=== PATIENT | female | born 1935 | race Caucasian/White ===

== ENCOUNTER → 2018-10-15 | Outpatient (CLI) | payer MEDICARE, BC ==
[2015-12-25 17:18] VITALS: BP 134/61
[~2018-10-15] MED LIST: BUME1TAB PO; BUPIVACAINE MPF 0.25% 10 ML VIAL. ONE; CYCL5TAB PO; DICL100G18 TP; GING250C PO; GINKO; INSU100I13 SQ; INSU100I17 SQ; IOHEXOL 180 MG/ML 10 ML VIAL. ONE; LEVO125T5 PO; LEVO25TA4 PO; MAGN400C PO; MELO15TA23 PO; METO-239 PO; PARS1TAB PO; QUIN10TA15 PO; VITA600C2 PO; [UNRECOGNIZED DRUG - OTHER]; [UNRECOGNIZED DRUG - OTHER]; [UNRECOGNIZED DRUG - OTHER]; [UNRECOGNIZED DRUG - OTHER]; [UNRECOGNIZED DRUG - OTHER]; arnica; methylPREDNISolone ACETATE 80 MG/ML VIAL. ONE; potassium; tumeric
--- NOTE | 2018-10-16 00:03 | PAIN ---
DATE OF SERVICE: 10/15/2018 INITIAL CONSULTATION FOR PAIN CLINIC CHIEF COMPLAINT: Right hip pain. HISTORY OF PRESENT ILLNESS: This is an 83-year-old female who presents with history of pain in the right hip for about 6 months, increasing with walking, standing, ambulating, putting all of her weight on her right leg with significant pain into the groin on the right side as well as into the posterior aspect of the hip and gluteus on the right as well, radiates into the anterior thigh, anterior lower thigh and into the lower leg at times. The patient reports it is worse with standing, walking, changing positions while she was stepping on a curb or a stairs. She is unable to climb the stairs from her basement affecting her activities of daily living significantly as her washing machine is in the basement, she could not get back up the stairs with the load of laundry. The patient reports the disability rating from 0-10, 10 being the worst, is a 10 with family and home responsibilities and social activity, occupation; 7 with self-care and life support activities; 8 with recreational activities. The patient did have plain films of the right hip showing moderate narrowing of the right hip joint with subchondral sclerosis and marginal spurring, moderate degenerative change of the right hip joint. The patient reports no significant pain on the left side. She is using a cane or walker and has a cane with her today. The patient reports it is waking her from sleep at least once or twice at night, does not affect her bowel or bladder control, but does affect her ability to walk significantly. The patient reports no loss of motor function or falls because she is careful with the cane or walker at all times. The patient has had some chiropractic treatments, which seems to help a little with her back pain, but not with her hip, has had some intramuscular injections for arthritis as well, which has helped, but not with the hip pain. PAST MEDICAL HISTORY: Significant for diabetes, hearing loss, cataracts, hypertension, heart stent, cardiac disease, coronary artery disease, arthritis, neuropathy. PREVIOUS SURGERY: Include hysterectomy, lumbar laminectomy in 1980, laser eye surgery, vitrectomy and vein ablation in the leg. CURRENT MEDICATIONS: Include cyclobenzaprine, meloxicam, turmeric, magnesium, potassium, vitamin E, bumetanide, insulin, levothyroxine, parsley and garlic, regi root, and Voltaren. ALLERGIES: THE PATIENT IS ALLERGIC TO CLONIDINE, DEMEROL, METFORMIN AND TETANUS. FAMILY HISTORY: Significant for heart disease as well as diabetes. SOCIAL HISTORY: The patient does not drink alcohol, does not smoke. Does not use any illegal, illicit or recreational drugs. She is retired, lives locally on her own and lives locally in [place], [place]. REVIEW OF SYSTEMS: The patient's review of systems is positive for those items mentioned in history of present illness. All systems reviewed, otherwise negative. It is complete, full and well documented on the patient's chart. PHYSICAL EXAMINATION: VITAL SIGNS: The patient's blood pressure 148/64, pulse 94, respirations 18, temperature 97.8 degrees Fahrenheit, height is 5 feet 2 inches, weight is 217 pounds. GENERAL: The patient is awake, alert, oriented, appropriate, very pleasant demeanor. HEENT: Shows normocephalic, atraumatic. Extraocular movements are intact and symmetrical. Oral cavity: Mucous membranes moist and pink. Dentition is intact. NECK: Shows anterior throat supple without palpable lymphadenopathy noted. Swallow reflex is symmetrical. CHEST: Shows normal on inspection. Breath sounds are clear to auscultation bilaterally. HEART: Shows S1, S2 clear. No murmurs auscultated. ABDOMEN: Soft, nontender, nondistended. No palpable organomegaly is noted. No rebound or guarding demonstrated. BACK: Shows spine grossly in the midline with slight increase in thoracic kyphosis and mild flattening of lumbar lordotic curvature with well-healed surgical scarring noted. Lumbar paraspinous muscle shows symmetrical on inspection. With palpation shows some moderate tenderness throughout the upper, middle, lower distribution of paraspinous muscles, but only diffusely. No tenderness over the sacrum or sacroiliac regions. The patient shows good rotational motion of lumbar spine both laterally as well as extension and flexion without significant difficulty. EXTREMITIES: Lower extremities show deep tendon reflexes 1+ in the patellar and tendo calcaneus tendons are equal. Motor exam is 5/5 with dorsiflexion and extension, quadriceps and hamstring flexion approximately 3-4 on a scale 5 on the right and 5/5 on the left. Peripheral pulses are 1+ posterior tibia. No peripheral edema is noted. The patient's lower extremities are warm and dry to touch, equal in color and appearance. The patient shows positive Rishi's maneuver on the right with external rotation and posterior displacement of the right hip. Left side is negative. Straight leg raise noted to be negative for reproduction of radicular symptoms bilaterally. SKIN: The patient's skin shows warm and dry, good turgor. No edema. No sores or bruising. The patient does have some red erythematous changes on anterior shins bilaterally. The patient is able to stand with difficulty standing on her toes as she loses balance easily, walking with a significant antalgic gait favoring the right lower extremity significantly with a limp and walking with a cane in her right hand, which she depended on fairly significantly. IMPRESSION: This is an 83-year-old female with: 1. Long history of right hip and lower extremity pain, worse over the past 6 months or so. 2. X-rays of the right hip as noted. 3. Diabetes. 4. Arthritis. 5. Coronary artery disease. 6. Hypertension. PLAN: Options were discussed with the patient including conservative medical management, physical therapy, interventional technique and she would like to pursue interventional techniques. We discussed a right intraarticular hip joint injection using description as well as anatomical models to describe the procedure. Risks were then discussed including, but not limited to bleeding, infection, possibility of intravascular injection sequelae, spread of local anesthetic and numbness, side effects of steroid medication, exposure to fluoroscopy and poor results regarding pain control. The patient understands and wished to proceed. The patient will return to the clinic in approximately 2 weeks for followup, was counseled on return appointment, activity level and side effects to be aware of. DIAGNOSIS: Right hip joint pain with primary osteoarthritis, right hip joint. PROCEDURE: Right intraarticular hip joint injection using C-arm fluoroscopic guidance under sterile prep and drape using local anesthetic. MEDICATION INJECTED: A total of 80 mg Depo-Medrol plus 3 mL of 0.25% bupivacaine and 2 mL of Isovue for contrast. CONDITION AT DISCHARGE: Stable. The patient tolerated the procedure well and had no complications. YANETH MARIA MD DR: FABIAN/leeanne JOB#: [id number] / [id number]
== END | disposition home or self-care (01) ==
LOC: PNCL 10:29
PROVIDERS: ATTEND Anesthesiology
DX: M16.11 Unilateral primary osteoarthritis, right hip (principal); I10 Essential (primary) hypertension; I25.10 Atherosclerotic heart disease of native coronary artery without angina pectoris; Z95.5 Presence of coronary angioplasty implant and graft; E11.40 Type 2 diabetes mellitus with diabetic neuropathy, unspecified; H91.90 Unspecified hearing loss, unspecified ear; Z90.710 Acquired absence of both cervix and uterus; Z98.890 Other specified postprocedural states; Z79.899 Other long term (current) drug therapy; Z79.4 Long term (current) use of insulin; Z88.6 Allergy status to analgesic agent; Z88.7 Allergy status to serum and vaccine; Z88.8 Allergy status to other drugs, medicaments and biological substances; Z88.5 Allergy status to narcotic agent; Z83.3 Family history of diabetes mellitus; Z82.49 Family history of ischemic heart disease and other diseases of the circulatory system
CPT/HCPCS: 20610; 77002; J1040; J3490; Q9965

== ENCOUNTER → 2018-12-17 | Outpatient (CLI) | payer MEDICARE, BC ==
[2015-12-25 17:18] VITALS: BP 134/61
[~2018-12-17] MED LIST changes: -BUME1TAB PO; +BUME1TAB3 PO; -BUPIVACAINE MPF 0.25% 10 ML VIAL. ONE; +HYDR-2765 PO; +HYDR-3164 PO; -IOHEXOL 180 MG/ML 10 ML VIAL. ONE; +LEVO150T5 PO; +MELO7.5T29 PO; -methylPREDNISolone ACETATE 80 MG/ML VIAL. ONE
[2018-12-17 13:54] LABS: BASO # 0.1 x10^3/uL (0.0-0.2); BASO % 1 % (0-3); EOS # 0.2 x10^3/uL (0.0-0.7); EOS % 3 % (0-3); HEMATOCRIT 33.2 % (36.0-47.0); HEMOGLOBIN 11.1 g/dL (12.0-15.5); LYMPH # 1.9 x10^3/uL (1.0-4.8); LYMPH % 22 % (24-48); MEAN CORPUSCULAR HEMOGLOBIN 31 pg (25-35); MEAN CORPUSCULAR HGB CONC 33 g/dL (31-37); MEAN CORPUSCULAR VOLUME 93 fL (79-100); MONO # 0.8 x10^3/uL (0.0-1.1); MONO % 9 % (0-9); NEUT # 5.6 x10^3uL (1.8-7.7); NEUT % 66 % (31-73); PLATELET COUNT 207 x10^3/uL (140-400); RED BLOOD COUNT 3.59 x10^6/uL (3.50-5.40); RED CELL DISTRIBUTION WIDTH 14.3 % (11.5-14.5); WHITE BLOOD COUNT 8.5 x10^3/uL (4.0-11.0)
[2018-12-17 14:02] LABS: PROTHROMBIN TIME PATIENT 13.9 SEC (11.7-14.0)
[2018-12-17 14:17] LABS: BILIRUBIN,URINE NEGATIVE (NEG); CLARITY,URINE CLEAR; COLOR,URINE YELLOW; NITRITE,URINE NEGATIVE (NEG); PH,URINE 5.5; PROTEIN,URINE NEGATIVE (NEG-TRACE); UROBILINOGEN,URINE 0.2 mg/dL (0.2 mg/dL)
[2018-12-17 14:17] LABS: ALBUMIN 3.1 g/dL (3.4-5.0); CALCIUM 8.9 mg/dL (8.5-10.1); CREATININE 0.9 mg/dL (0.6-1.0); GFR 59.7; POTASSIUM 3.9 mmol/L (3.5-5.1)
[2018-12-17 14:33] LABS: SQUAMOUS EPITHELIAL CELL,UR FEW /LPF
[2018-12-17 14:34] LABS: BACTERIA,URINE 0 /HPF (0-FEW); RBC,URINE 0 /HPF (0-2)
== END | disposition home or self-care (01) ==
LOC: SURGPAT 09:17
PROVIDERS: ATTEND Orthopaedic Surgery
DX: Z01.818 Encounter for other preprocedural examination (principal); M16.11 Unilateral primary osteoarthritis, right hip; I11.0 Hypertensive heart disease with heart failure; E11.9 Type 2 diabetes mellitus without complications; I50.9 Heart failure, unspecified; J45.909 Unspecified asthma, uncomplicated; Z88.8 Allergy status to other drugs, medicaments and biological substances; Z79.899 Other long term (current) drug therapy; Z88.6 Allergy status to analgesic agent; Z88.5 Allergy status to narcotic agent; Z88.7 Allergy status to serum and vaccine; Z79.4 Long term (current) use of insulin; Z90.710 Acquired absence of both cervix and uterus; Z98.890 Other specified postprocedural states
CPT/HCPCS: 36415; 80048; 81001; 82040; 85025; 85610; 85651; 85730; 87086; 87641

== ENCOUNTER → 2018-12-22 | Outpatient (CLI) | payer MEDICARE, BC ==
[2015-12-25 17:18] VITALS: BP 134/61
[~2018-12-22] MED LIST changes: +BUME1TAB PO; -BUME1TAB3 PO; -HYDR-3164 PO; -MELO7.5T29 PO
--- NOTE | 2018-12-22 15:42 | CARD ---
MR#: [id number] Date of Study: 12/22/2018 Ordering Physician: SUKHJINDER SHARMA, Referring Physician: SUKHJINDER SHARMA, Tech: Amy Velez [facility] APPROVED REPORT EXAM: Two-dimensional and M-mode echocardiogram with Doppler and color Doppler. Other Information Quality : Good INDICATION Pre-Op Cardiac Disease: CAD 2D DIMENSIONS RVDd2.1 (2.9-3.5cm)Left Atrium(2D)4.3 (1.6-4.0cm) IVSd0.7 (0.7-1.1cm)Aortic Root(2D)2.4 (2.0-3.7cm) LVDd6.1 (3.9-5.9cm)LVOT Diameter2.0 (1.8-2.4cm) PWd0.7 (0.7-1.1cm)LVDs4.4 (2.5-4.0cm) FS (%) 24.0 %SV100.6 ml Aortic Valve AoV Peak Morro.151.8cm/sAoV VTI30.7cm AO Peak GR.9.2mmHgLVOT Peak Morro.102.1cm/s AO Mean GR.5mmHgAVA (VMAX)2.13cm2 LILLIANA (VTI)2.30cm2 Mitral Valve MV E Lpezxuve717.9cm/sMV DECEL WQYD223cv MV A Ngzkmgfb729.6cm/sE/A Ratio1.6 Tricuspid Valve TR P. Bixcefvi275nd/sRAP LSVKXNNM5fzLm TR Peak Gr.82enNzFYGN62xlTy Pulmonary Vein S1 Vgtfcqmu74.7cm/sD2 Bocnysss98.1cm/s LEFT VENTRICLE The Left Ventricle is mildly dilated. There is normal left ventricular wall thickness. Left ventricle systolic function is moderately impaired. The Ejection Fraction is estimated at 35 to 40%. There is hypokinesis in the apical septal and mid anteroseptall pena. Transmitral Doppler flow pattern is res trictive diastolic dysfunction. RIGHT VENTRICLE The right ventricle is normal size. The right ventricular systolic function is normal. ATRIA The left atrium is mildly dilated. The right atrium size is normal. The interatrial septum is intact with no evidence for an atrial septal defect or patent foramen ovale as noted on 2-D or Doppler imagi ng. AORTIC VALVE The aortic valve is calcified but opens well. Doppler and Color Flow revealed no significant aortic r egurgitation. There is no significant aortic valvular stenosis. MITRAL VALVE The mitral valve is calcified but opens well. There is no evidence of mitral valve prolapse. There is no mitral valve stenosis. Doppler and Color-flow revealed mild to moderate mitral regurgitation. TRICUSPID VALVE The tricuspid valve is normal in structure and function. Doppler and Color Flow revealed mild to mode rate tricuspid regurgitation. There is moderate-severe pulmonary hypertension. The PA pressure was es timated at 60 mmHg. There is no tricuspid valve stenosis. PULMONIC VALVE The pulmonic valve is not well visualized. Doppler and Color Flow revealed no pulmonic valvular regur gitation. There is no pulmonic valvular stenosis. GREAT VESSELS The aortic root is normal in size. The ascending aorta is normal in size. The IVC is normal in size a nd collapses <50% with inspiration. PERICARDIAL EFFUSION There is no evidence of significant pericardial effusion. Critical Notification Critical Value: No <Conclusion> The Left Ventricle is mildly dilated. Left ventricle systolic function is moderately impaired. The Ejection Fraction is estimated at 35 to 40%. There is hypokinesis in the apical septal and mid anteroseptall pena. There is no significant aortic valvular stenosis. Doppler and Color Flow revealed no significant aortic regurgitation. Doppler and Color-flow revealed mild to moderate mitral regurgitation. Doppler and Color Flow revealed mild to moderate tricuspid regurgitation. There is moderate-severe pulmonary hypertension. The PA pressure was estimated at 60 mmHg. Signed by : Sukhjinder Sharma MD Electronically Approved : 12/22/2018 15:39:39
== END | disposition home or self-care (01) ==
LOC: ECHO 14:10
PROVIDERS: ATTEND Internal Medicine Cardiovascular Disease
DX: I08.1 Rheumatic disorders of both mitral and tricuspid valves (principal); I25.10 Atherosclerotic heart disease of native coronary artery without angina pectoris; I27.20 Pulmonary hypertension, unspecified
CPT/HCPCS: 93306

== ENCOUNTER 2019-02-22 23:18 | Emergency (ER) | payer MEDICARE, BC ==
[~2019-02-22] VITALS: Ht 157.5 cm; Wt 90.3 kg
[~2019-02-22 23:18] MED LIST changes: -BUME1TAB PO; +BUME1TAB3 PO
[2019-02-22 23:36] VITALS: BP 150/67
--- NOTE | 2019-02-23 00:03 | PHYS DOC ---
Past Medical History Past Medical History: Asthma, CHF, Diabetes-Type II, Hypertension, Hypothyroid Past Surgical History: Angioplasty, Hysterectomy, Lumbar Laminectomy, Other Additional Past Surgical Histo: vein ablasion,R. HIP Alcohol Use: None Drug Use: None Adult General Chief Complaint Chief Complaint: HIP PAIN [facility] HPI Patient is a 83 year old female who presents with 10 days of left-sided lumbar spine pain with radiation to the left hip. Patient denies injury or fall. Patient does have arthritis in the left knee 2 months ago she had a right hip replacement. Patient did see her orthopedic who dismissed her on Saturday and she states that she did tell him about it but the pain wasn't great enough for her to worry about. Patient states she does not have a appointment with her primary care until March 18 and states she cannot get in any sooner than that. Patient states she does take Victor at home which helps her pain. Patient is ambulatory. Patient does have range of motion to the left hip and back but is slightly limited due to the pain. Review of Systems Review of Systems Constitutional: Denies fever or chills [] Eyes: Denies change in visual acuity, redness, or eye pain [] HENT: Denies nasal congestion or sore throat [] Respiratory: Denies cough or shortness of breath [] Cardiovascular: No additional information not addressed in HPI [] GI: Denies abdominal pain, nausea, vomiting, bloody stools or diarrhea [] : Denies dysuria or hematuria [] Musculoskeletal: Left lower back pain. Left hip joint pain [] Integument: Denies rash or skin lesions [] Neurologic: Denies headache, focal weakness or sensory changes [] Endocrine: Denies polyuria or polydipsia [] All other systems were reviewed and found to be within normal limits, except as documented in this note. Allergies Allergies Allergies Coded Allergies Type Severity Reaction Last Updated Verified Sulfa (Sulfonamide Antibiotics) Allergy Severe SICK A DOG 12/23/18 Yes Tetanus Vaccines and Toxoid Allergy Intermediate 12/23/18 Yes meperidine Allergy Intermediate 12/23/18 Yes metformin Allergy Intermediate 12/23/18 Yes Ptcmxyn-Umu-Xba Reductase Inhibitor Allergy Mild TAKES AWAY HER ENERGY Yes codeine Allergy Mild HAS TOLERATED MORPHINE 12/23/18 Yes Physical Exam Physical Exam Constitutional: Well developed, well nourished, no acute distress, non-toxic appearance. [] HENT: Normocephalic, atraumatic, bilateral external ears normal, oropharynx moist, no oral exudates, nose normal. [] Eyes: PERRLA, EOMI, conjunctiva normal, no discharge. [] Neck: Normal range of motion, no tenderness, supple, no stridor. [] Cardiovascular:Heart rate regular rhythm, no murmur [] Lungs & Thorax: Bilateral breath sounds clear to auscultation [] Abdomen: Bowel sounds normal, soft, no tenderness, no masses, no pulsatile masses. [] Skin: Warm, dry, no erythema, no rash. [] Back: Left lower back tenderness, no CVA tenderness. [] Extremities: No tenderness, no cyanosis, no clubbing, ROM intact, no edema. [] Neurologic: Alert and oriented X 3, normal motor function, normal sensory function, no focal deficits noted. [] Psychologic: Affect normal, judgement normal, mood normal. [] Current Patient Data Vital Signs Vital Signs Date Time Temp Pulse Resp B/P (MAP) Pulse Ox O2 Delivery O2 Flow Rate FiO2 02/22/19 23:36 97.9 79 20 150/67 (94) 97 Room Air 97.9 EKG EKG [] Radiology/Procedures Radiology/Procedures [] Course & Med Decision Making Course & Med Decision Making Patient is a 83 year old female who presents with 10 days of left-sided lumbar spine pain with radiation to the left hip. Patient denies injury or fall. Patient does have arthritis in the left knee 2 months ago she had a right hip replacement. Patient did see her orthopedic who dismissed her on Saturday and she states that she did tell him about it but the pain wasn't great enough for her to worry about. Patient states she does not have a appointment with her primary care until March 18 and states she cannot get in any sooner than that. Patient states she does take Victor at home which helps her pain. Patient is ambulatory. Patient does have range of motion to the left hip and back but is slightly limited due to the pain. No swelling to the left lower extremity. There is slight tenderness to the left lower lumbar area. There is no radiation,bruising or masses felt. Pedal pulses present and strong. 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 Xrays show no obvious acute findings. Patient should call her primary care in the morning to schedule a follow up visit. Patient to take medication as prescribed. Mike Disclaimer Mike Disclaimer This electronic medical record was generated, in whole or in part, using a voice recognition dictation system. Departure Departure Impression: Primary Impression: Left hip pain Additional Impression: Left low back pain Disposition: HOME, SELF-CARE Condition: STABLE Referrals: OSIEL YI (PCP) Patient Instructions: Back Pain, Adult, Hip Pain Additional Instructions: FOLLOW UP WITH YOUR PRIMARY CARE DOCTOR OR YOUR ORTHOPEDIC DOCTOR. TAKE MEDICATION PRESCRIBED. TRY USING A HEATING PAD. Scripts Hydrocodone/Apap 5-325 (NORCO 5-325 TABLET) 1 Each Tablet 1 TAB PO PRN Q6HRS PRN for PAIN, #8 TAB 0 Refills Prov: VERÓNICA SKINNER APRN 02/23/19 Problem Qualifiers Additional Impression: Left low back pain Chronicity: acute Sciatica presence: without sciatica Qualified Codes: M54.5 - Low back pain VERÓNICA SKINNER APRN Feb 23, 2019 00:03
[2019-02-23] MEDS ORDERED: MELO7.5T29 PO (00:48)
[2019-02-23] MEDS ORDERED: HYDR-3164 PO (01:13)
--- NOTE | 2019-02-23 01:34 | RAD ---
AP and lateral left hip radiographs to include an AP radiograph of the pelvis 02/23/2019 CLINICAL HISTORY: Left hip pain for 10 days. An AP digital radiograph of the pelvis was obtained. AP and lateral digital radiographs of the left hip were obtained. The patient is post right SONAL. No pelvic bone fracture is seen. No fracture or dislocation of the left hip is noted. Calcifications are seen within the pelvis consistent with phleboliths. Degenerative changes are seen involving the lower lumbar spine, both SI joints and both hips. IMPRESSION: No acute osseous abnormality is seen. Electronically signed by: Marvin Izquierdo MD (02/23/2019 1:31 AM) [facility]
--- NOTE | 2019-02-23 01:39 | RAD ---
Three-view lumbar spine radiographs 02/23/2019 CLINICAL HISTORY: Low back pain for 10 days. AP and 2 lateral digital radiographs of the lumbar spine were obtained. Very mild S-shaped curvature of the thoracolumbar spine is seen. Degenerative changes are seen involving the lower thoracic and throughout the lumbar disc spaces consisting of varying degrees of disc space narrowing, vertebral endplate sclerosis and mild to moderate anterior vertebral body osteophyte formation. Degenerative changes are seen involving the facet joints throughout the mid and lower lumbar spine. No fracture or subluxation of the lumbar vertebrae seen. Atherosclerotic calcification of the abdominal aorta and its branches is noted. IMPRESSION: Degenerative changes are seen involving the lumbar spine as outlined above. No acute osseous abnormality is seen. Electronically signed by: Marvin Izquierdo MD (02/23/2019 1:36 AM) [facility]
[2019-02-23] MEDS ORDERED: IOHEXOL 300 MG/ML 100ML VIAL. ONE (15:48)
== END 2019-02-23 01:29 | disposition home or self-care (01) ==
LOC: ER 02-23 00:25
DX: M25.552 Pain in left hip (principal); M54.5 Low back pain; I11.0 Hypertensive heart disease with heart failure; I50.9 Heart failure, unspecified; E11.9 Type 2 diabetes mellitus without complications; E03.9 Hypothyroidism, unspecified; J45.909 Unspecified asthma, uncomplicated; Z95.5 Presence of coronary angioplasty implant and graft; Z90.710 Acquired absence of both cervix and uterus; Z88.1 Allergy status to other antibiotic agents; Z88.2 Allergy status to sulfonamides; Z88.5 Allergy status to narcotic agent; Z88.7 Allergy status to serum and vaccine; Z91.041 Radiographic dye allergy status; Z88.8 Allergy status to other drugs, medicaments and biological substances
CPT/HCPCS: 72100; 73502; 99283

== ENCOUNTER → 2019-02-23 | Outpatient (CLI) | payer MEDICARE, BC ==
[2019-02-22 23:36] VITALS: BP 150/67
[~2019-02-23] MED LIST changes: +HYDR-3164 PO; +IOHEXOL 300 MG/ML 100ML VIAL. IV ONE; +MELO7.5T29 PO
[2019-02-23 14:27] LABS: BILIRUBIN,URINE NEGATIVE (NEG); CLARITY,URINE CLEAR; COLOR,URINE YELLOW; NITRITE,URINE NEGATIVE (NEG); PROTEIN,URINE NEGATIVE (NEG-TRACE); UROBILINOGEN,URINE 0.2 mg/dL (0.2 mg/dL)
[2019-02-23 14:29] LABS: BASO # 0.1 x10^3/uL (0.0-0.2); BASO % 1 % (0-3); EOS # 0.2 x10^3/uL (0.0-0.7); EOS % 2 % (0-3); HEMATOCRIT 36.7 % (36.0-47.0); HEMOGLOBIN 11.5 g/dL (12.0-15.5); LYMPH # 2.4 x10^3/uL (1.0-4.8); LYMPH % 25 % (24-48); MEAN CORPUSCULAR HEMOGLOBIN 27 pg (25-35); MEAN CORPUSCULAR HGB CONC 31 g/dL (31-37); MEAN CORPUSCULAR VOLUME 87 fL (79-100); MONO # 0.9 x10^3/uL (0.0-1.1); MONO % 10 % (0-9); NEUT # 5.9 x10^3uL (1.8-7.7); NEUT % 62 % (31-73); PLATELET COUNT 266 x10^3/uL (140-400); RED BLOOD COUNT 4.24 x10^6/uL (3.50-5.40); RED CELL DISTRIBUTION WIDTH 15.3 % (11.5-14.5); WHITE BLOOD COUNT 9.5 x10^3/uL (4.0-11.0)
[2019-02-23 14:41] LABS: BACTERIA,URINE FEW /HPF (0-FEW); RBC,URINE OCC /HPF (0-2); SQUAMOUS EPITHELIAL CELL,UR MOD /LPF
[2019-02-23 14:47] LABS: CREATININE 0.8 mg/dL (0.6-1.0); GFR 68.3; POTASSIUM 4.7 mmol/L (3.5-5.1)
--- NOTE | 2019-02-23 16:25 | RAD ---
CT of the abdomen and pelvis with contrast, 02/23/2019: HISTORY: Left flank pain Multidetector CT imaging was performed following an IV bolus injection of iodinated contrast material. No oral contrast material was administered for this exam. There is minimal linear atelectasis or scarring in the lung bases. Coronary artery calcifications are noted. No hepatic abnormality is identified. There is a small amount of radiopaque material within the dependent aspect of the gallbladder suggesting tiny calculi versus milk of calcium. Gallbladder pena are not thickened. There is no pericholecystic edema. The pancreas demonstrates fatty change. No pancreatic mass is evident. The spleen is of normal size. There is mild bilateral renal cortical scarring. The kidneys show no evidence of renal obstruction or abnormal enhancement. There is moderate calcific plaquing of the abdominal aorta and its branches without evidence of aneurysm. No abdominal or pelvic adenopathy is seen. Artifacts arising from a right hip prosthesis degrade image quality in the lower pelvis. Numerous lower pelvic calcifications are probably phleboliths. The bowel loops are not dilated. The cecum is mobile extending into the left lower quadrant. No dilated appendix or pericecal inflammatory process is seen. There appears to be small hiatal hernia. No free air or free fluid is evident in the abdomen or pelvis. Moderate multilevel degenerative changes are present in the lumbar spine. There is a tiny fat-containing periumbilical hernia. IMPRESSION: 1. Probable cholelithiasis. 2. Small hiatal hernia. 3. Additional chronic findings as described above. 4. No acute abdominal or pelvic abnormality is detected. PQRS Compliance Statement: One or more of the following individualized dose reduction techniques were utilized for this examination: 1. Automated exposure control 2. Adjustment of the mA and/or kV according to patient size 3. Use of iterative reconstruction technique Electronically signed by: Poncho Yip MD (02/23/2019 4:23 PM) [facility]
== END | disposition home or self-care (01) ==
LOC: CT 13:35
PROVIDERS: ATTEND Surgery
DX: K44.9 Diaphragmatic hernia without obstruction or gangrene (principal); K42.9 Umbilical hernia without obstruction or gangrene; I70.0 Atherosclerosis of aorta; I25.10 Atherosclerotic heart disease of native coronary artery without angina pectoris
CPT/HCPCS: 36415; 74177; 80048; 81001; 85025; Q9967

== ENCOUNTER 2019-05-31 00:19 | Emergency (ER) | payer MEDICARE, BC ==
[~2019-05-31] VITALS: Ht 157.5 cm; Wt 86.2 kg
[~2019-05-31 00:19] MED LIST changes: -IOHEXOL 300 MG/ML 100ML VIAL. IV ONE
[2019-05-31] MEDS ORDERED: PRED20TA PO (01:36)
--- NOTE | 2019-05-31 01:37 | PHYS DOC ---
Past Medical History Past Medical History: Asthma, CHF, Diabetes-Type II, Hypertension, Hypothyroid Past Surgical History: Angioplasty, Hysterectomy, Lumbar Laminectomy, Other Additional Past Surgical Histo: vein ablasion,R. HIP Alcohol Use: None Drug Use: None Adult General Chief Complaint Chief Complaint: HAND PROBLEM HPI HPI Patient is a 83 year old [f__sex] who presents with [] Review of Systems Review of Systems Constitutional: Denies fever or chills [] Eyes: Denies change in visual acuity, redness, or eye pain [] HENT: Denies nasal congestion or sore throat [] Respiratory: Denies cough or shortness of breath [] Cardiovascular: No additional information not addressed in HPI [] GI: Denies abdominal pain, nausea, vomiting, bloody stools or diarrhea [] : Denies dysuria or hematuria [] Musculoskeletal: Denies back pain or joint pain [] Integument: Denies rash or skin lesions [] Neurologic: Denies headache, focal weakness or sensory changes [] Endocrine: Denies polyuria or polydipsia [] All other systems were reviewed and found to be within normal limits, except as documented in this note. Allergies Allergies Allergies Coded Allergies Type Severity Reaction Last Updated Verified Sulfa (Sulfonamide Antibiotics) Allergy Severe SICK A DOG 12/23/18 Yes Tetanus Vaccines and Toxoid Allergy Intermediate 12/23/18 Yes meperidine Allergy Intermediate 12/23/18 Yes metformin Allergy Intermediate 12/23/18 Yes Pxjpdzr-Yya-Pmd Reductase Inhibitor Allergy Mild TAKES AWAY HER ENERGY 12/23/18 Yes codeine Allergy Mild HAS TOLERATED MORPHINE 12/23/18 Yes Physical Exam Physical Exam Constitutional: Well developed, well nourished, no acute distress, non-toxic appearance. [] HENT: Normocephalic, atraumatic, bilateral external ears normal, oropharynx moist, no oral exudates, nose normal. [] Eyes: PERRLA, EOMI, conjunctiva normal, no discharge. [] Neck: Normal range of motion, no tenderness, supple, no stridor. [] Cardiovascular:Heart rate regular rhythm, no murmur [] Lungs & Thorax: Bilateral breath sounds clear to auscultation [] Abdomen: Bowel sounds normal, soft, no tenderness, no masses, no pulsatile masses. [] Skin: Warm, dry, no erythema, no rash. [] Back: No tenderness, no CVA tenderness. [] Extremities: No tenderness, no cyanosis, no clubbing, ROM intact, no edema. [] Neurologic: Alert and oriented X 3, normal motor function, normal sensory fun ction, no focal deficits noted. [] Psychologic: Affect normal, judgement normal, mood normal. [] EKG EKG [] Radiology/Procedures Radiology/Procedures [] Course & Med Decision Making Course & Med Decision Making Pertinent Labs and Imaging studies reviewed. (See chart for details) [] Dragon Disclaimer Dragon Disclaimer This electronic medical record was generated, in whole or in part, using a voice recognition dictation system. Departure Departure Impression: Primary Impression: Bee sting Disposition: HOME, SELF-CARE Condition: STABLE Referrals: OSIEL YI (PCP) Patient Instructions: Bee, Wasp, or Hornet Sting Additional Instructions: ICE area of swellin min on then off for next 20 min. Clean wound daily with soap and water. Change dressing 2 times daily. Use over the counter antibiotic ointment with each dressing change. Use over the counter Benadryl 25mg every 6 hours as needed for swelling or itching. Scripts Prednisone (PREDNISONE) 20 Mg Tablet 2 TAB PO DAILY, #8 TAB Start this medication tomorrow, June 01 Prov: CATA BEAVER DO 05/31/19 Problem Qualifiers Primary Impression: Bee sting Encounter type: initial encounter Injury intent: accidental or unintentional Qualified Codes: T63.441A - Toxic effect of venom of bees, accidental (unintentional), initial encounter CATA BEAVER DO May 31, 2019 01:37
[2019-05-31] MEDS ORDERED: DEXAMETHASONE 4 MG TABLET PO ONE (01:45)
[2019-05-31] MEDS ORDERED: diphenhydrAMINE HCL 25 MG CAPSULE PO ONE (01:45)
[2019-05-31] MEDS ORDERED: NEOMY/BACITR/POLYMYXIN OINT PACKET. TP ONE (01:45)
== END 2019-05-31 02:00 | disposition home or self-care (01) ==
LOC: ER 00:19
DX: T63.441A Toxic effect of venom of bees, accidental (unintentional), initial encounter (principal); I11.0 Hypertensive heart disease with heart failure; I50.9 Heart failure, unspecified; E11.9 Type 2 diabetes mellitus without complications; E03.9 Hypothyroidism, unspecified; J45.909 Unspecified asthma, uncomplicated; Z90.710 Acquired absence of both cervix and uterus; Z95.5 Presence of coronary angioplasty implant and graft; Z88.1 Allergy status to other antibiotic agents; Z88.2 Allergy status to sulfonamides; Z88.5 Allergy status to narcotic agent; Z91.041 Radiographic dye allergy status; Z88.7 Allergy status to serum and vaccine; Y92.89 Other specified places as the place of occurrence of the external cause
CPT/HCPCS: 99284; J8540; Q0163